=== PATIENT | female | born 1975 | race Caucasian/White ===

== ENCOUNTER 2018-11-11 17:56 | Emergency (ER) | payer OTHER ==
[~2018-11-11] VITALS: Ht 167.6 cm; Wt 77.1 kg
[2018-11-11 18:33] VITALS: BP 151/99
--- NOTE | 2018-11-11 20:30 | NUR ---
PT TO CHAIR E
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
[2018-11-11] MEDS ORDERED: KETOROLAC 60 MG/2 ML VIAL IM ONE (20:40)
[2018-11-11 21:15] VITALS: BP 142/82
--- NOTE | 2018-11-11 21:15 | NUR ---
Patient discharged with v/s stable. Written and verbal after care instructions given and explained. Patient alert, oriented and verbalized understanding of instructions. Ambulatory with steady gait. All questions addressed prior to discharge. ID band removed. Patient advised to follow up with PMD. Rx of IBUPROFEN 600MG AND FLEXERIL 10MG given. Patient educated on indication of medication including possible reaction and side effects. Opportunity to ask questions provided and answered.
== END 2018-11-11 21:15 | disposition home or self-care (01) ==
LOC: MED 17:56
DX: S16.1XXA Strain of muscle, fascia and tendon at neck level, initial encounter (principal); S39.012A Strain of muscle, fascia and tendon of lower back, initial encounter; I10 Essential (primary) hypertension; V89.2XXA Person injured in unspecified motor-vehicle accident, traffic, initial encounter; Y93.89 Activity, other specified; Y92.89 Other specified places as the place of occurrence of the external cause; Y99.8 Other external cause status
CPT/HCPCS: 96372; 99283; J1885

== ENCOUNTER 2021-09-29 23:04 | Emergency (ER) | payer OTHER ==
[~2021-09-29] VITALS: Ht 165.1 cm; Wt 81.6 kg
--- NOTE | 2021-09-29 23:07 | NUR ---
[facility] BHAT TAKEN TO BED #10
[2021-09-29 23:30] VITALS: BP 110/80
--- NOTE | 2021-09-29 23:50 | NUR ---
Dr. Varner examining patient.
[2021-09-29 23:58] LABS: BASOPHILS % (AUTO) 0.8 % (0.0-2.0); EOSINOPHILS # (AUTO) 0.1 K/uL (0-0.4); EOSINOPHILS % (AUTO) 1.3 % (0.0-4.0); HEMATOCRIT 36.7 % (36-48); HEMOGLOBIN 12.6 g/dL (12.0-16.0); LYMPHOCYTES # (AUTO) 2.4 K/uL (2.5-16.5); LYMPHOCYTES % (AUTO) 48.4 % (20.5-51.1); MEAN CORPUSCULAR HEMOGLOBIN 32 pg (27-31); MEAN CORPUSCULAR HGB CONC 34 g/dL (33-37); MEAN CORPUSCULAR VOLUME 94.7 fL (80-94); MONOCYTES # (AUTO) 0.2 K/uL (0.8-1.0); MONOCYTES % (AUTO) 4.7 % (1.7-9.3); NEUTROPHILS # (AUTO) 2.3 K/uL (1.8-7.7); NEUTROPHILS % (AUTO) 44.8 % (42.2-75.2); PLATELET COUNT (AUTO) 324 K/uL (140-450); RED BLOOD CELL COUNT(AUTO) 3.87 MIL/uL (4.20-5.40); RED CELL DISTRIBUTION WIDTH 13.3 % (11.6-13.7); WHITE BLOOD COUNT (AUTO) 5.1 K/uL (4.8-10.8)
--- NOTE | 2021-09-30 00:02 | NUR ---
PT TAKEN TO CT
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
[2021-09-30] MEDS ORDERED: NACL 0.9% 1,000 ML IV ONE ×2 (00:05→01:50)
--- NOTE | 2021-09-30 00:17 | NUR ---
PT RETURN FROM CT
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
[2021-09-30 01:45] LABS: CHLORIDE 99 mmol/L (98-107); GLUCOSE 121 mg/dL (74-106); POTASSIUM 4.2 mmol/L (3.5-5.1)
--- NOTE | 2021-09-30 01:45 | NUR ---
PT STRAIGHT CATH AT THIS TIME. NO URINE PRODUCTION. DR. MARISCAL MADE AWARE. RECEIVED ORDER FOR 0.9% BOLUS. ORDER CARRIED OUT.
[2021-09-30 01:46] LABS: ACETAMINOPHEN 30.1 ug/ml (10-30); SALICYLATE < 2.8 mg/dL (2.8-20.0)
[2021-09-30 01:47] LABS: CREATININE 0.6 mg/dL (0.6-1.3); GFR ARICAN-AMERICAN 138 mL/min (>90); TOTAL BILIRUBIN 0.4 mg/dL (0.0-1.0)
[2021-09-30 01:49] LABS: CARBON DIOXIDE 20.3 mmol/L (21-32)
[2021-09-30 01:51] LABS: ALBUMIN 3.7 g/dL (3.4-5.0); ANION GAP 23.9 (8-16); ASPARTATE AMINOTRANSFERASE 35 U/L (15-37); SODIUM SERUM 139 mmol/L (136-145); UREA NITROGEN, BLOOD 12 mg/dL (7-18)
--- NOTE | 2021-09-30 03:09 | NUR ---
PT IS NOW ABLE TO FOLLOW SIMPLE COMMANDS BUT STILL HAS UNINTELLIGBLE SPEECH. GCS:12 (E3, V3, M6).
--- NOTE | 2021-09-30 03:29 | NUR ---
Pediatric Urinary catheter inserted utilizing sterile technique. Immediate return of 250 ml straw colored clear urine noted. Urine sample collected and sent to lab. Pt tolerated procedure well.
[2021-09-30 03:43] LABS: APPEARANCE,URINE CLEAR (CLEAR); BILIRUBIN,URINE NEGATIVE (NEGATIVE); BLOOD, URINE TRACE-I (NEGATIVE); COLOR,URINE YELLOW (YELLOW); LEUKOCYTE ESTERASE ,URINE NEGATIVE (NEGATIVE); NITRITE, URINE NEGATIVE (NEGATIVE); UGLUCOSE NEGATIVE (NEGATIVE)
[2021-09-30 03:46] LABS: BARBITURATE, URINE NEGATIVE ng/ml (NEG <=200); BENZODIAZEPINE, URINE NEGATIVE ng/mL (NEG <=200); CANNABINOID, URINE POSITIVE ng/mL (NEG <=50); COCAINE, URINE NEGATIVE ng/mL (NEG <=300); OPIATE, URINE NEGATIVE ng/mL (NEG <=2000); PHENCYCLIDINE SCREEN,URINE NEGATIVE ng/mL (NEG <=25)
[2021-09-30 03:48] LABS: RBC,URINE 0-5 /HPF (0-5); WBC,URINE 0-5 /HPF (0-5)
--- NOTE | 2021-09-30 04:11 | NUR ---
PT IS NOW A/OX4 WITH GCS:15 BUT SLOW TO RESPOND.
[2021-09-30 04:20] VITALS: BP 113/68
--- NOTE | 2021-09-30 04:20 | NUR ---
Patient discharged with v/s stable. Written and verbal after care instructions given and explained. Patient verbalized understanding. Ambulatory with steady gait to family's car. All questions addressed prior to discharge. Advised to follow up with PMD. VSS, A/OX4, AMBULATORY, UNLABORED BREATHING, AND CALM DEMEANOR.
== END 2021-09-30 04:20 | disposition home or self-care (01) ==
LOC: MED 23:04
DX: R41.82 Altered mental status, unspecified (principal); T40.715A Adverse effect of cannabis, initial encounter; R00.0 Tachycardia, unspecified; Y92.89 Other specified places as the place of occurrence of the external cause
CPT/HCPCS: 36415; 70450; 80053; 80305; 81001; 84703; 85025; 87086; 93005; 96360; 96361; 99285; G0480; G0482; J7030

== ENCOUNTER 2023-01-01 22:44 | Emergency (ER) | payer OTHER ==
[~2023-01-01] VITALS: Ht 170.2 cm; Wt 79.4 kg
[2023-01-01 22:51] VITALS: BP 114/63
--- NOTE | 2023-01-01 22:58 | NUR ---
PT OFFLOADED TO BED 11.
--- NOTE | 2023-01-01 22:58 | NUR ---
PT BIBA BLS ER BED 11
--- NOTE | 2023-01-01 23:11 | NUR ---
RADIOLOGY AT BEDSIDE FOR PORTABLE IMAGING
[2023-01-01] MEDS ORDERED: KETOROLAC 30 MG/ML VIAL IM ONE (23:35)
[2023-01-02] MEDS ORDERED: LID5T TP (00:11)
[2023-01-02] MEDS ORDERED: NAPR-54 PO (00:11)
[2023-01-02] MEDS ORDERED: CYCL-711 PO (00:11)
[2023-01-02] MEDS ORDERED: BACITRACIN OINT 500 UNITS/GM PKT TP ONE ×2 (00:15→00:19)
[2023-01-02 00:35] VITALS: BP 120/80
--- NOTE | 2023-01-02 00:36 | NUR ---
Patient discharged with v/s stable. Written and verbal after care instructions given and explained. Patient alert, oriented and verbalized understanding of instructions. Ambulatory with steady gait. All questions addressed prior to discharge. ID band removed. Patient advised to follow up with PMD. Rx of naprosyn, flexeril, and lido patch given. Patient educated on indication of medication including possible reaction and side effects. Opportunity to ask questions provided and answered.
== END 2023-01-02 00:34 | disposition home or self-care (01) ==
LOC: MED 22:44
DX: S02.5XXA Fracture of tooth (traumatic), initial encounter for closed fracture (principal); S20.211A Contusion of right front wall of thorax, initial encounter; S05.11XA Contusion of eyeball and orbital tissues, right eye, initial encounter; S09.90XA Unspecified injury of head, initial encounter; Z79.899 Other long term (current) drug therapy; Z90.710 Acquired absence of both cervix and uterus; W18.30XA Fall on same level, unspecified, initial encounter; Y93.89 Activity, other specified; Y92.89 Other specified places as the place of occurrence of the external cause; Y99.8 Other external cause status
CPT/HCPCS: 71045; 96372; 99283; J1885; Q0092